=== PATIENT | male | born 1995 | race Caucasian/White ===

== ENCOUNTER 2020-08-26 05:57 | Emergency (ER) | payer OTHER ==
[2020-08-26 06:53] LABS: BASOPHIL 0.6 % (0-2); EOSINOPHIL 10.6 % (0-5); HCT 45.7 % (42.0-52.0); HGB 16.4 g/dl (13.2-18.0); LYMPHOCYTE 24.7 % (15-48); MCH 31.1 pg (25.0-31.0); MCHC 35.9 g/dL (32.0-36.0); MCV 86.7 fL (78.0-100.0); MONOCYTE 5.1 % (0-12); MPV 11.5 fL (6.0-9.5); NEUTROPHIL 58.8 % (41-80); NRBC 0; PLT 278 K/uL (150-400); RBC 5.27 M/uL (4.70-6.00); RDW 12.4 % (11.5-14.0); WBC 9.7 K/uL (4.0-10.5)
[2020-08-26 06:58] LABS: INR 1.12 (0.9-1.2); PROTHROMBIN TIME 13.7 SECONDS (11.4-13.6); PTT 31.3 SECONDS (22.2-34.7)
[2020-08-26 06:59] LABS: D-DIMER < 0.27 ug/mLFEU (0.00-0.41)
[2020-08-26 07:09] LABS: ALBUMIN 4.7 g/dL (3.4-5.0); BILIRUBIN - TOTAL 0.5 mg/dL (0.2-1.0); GLOBULIN (CALCULATION) 3.3 g/dL; POTASSIUM 4.2 mmol/L (3.5-5.1)
[2020-08-26 07:12] LABS: PRO-BNP 27 pg/mL (<125)
[2020-08-26 07:16] LABS: LACTIC ACID 1.1 mmol/L (0.4-1.9)
[2020-08-26 07:40] LABS: CORONAVIRUS 2019 SARS-COV-2 NEGATIVE (NEGATIVE); INFLUENZA A NAA NEGATIVE (NEGATIVE)
[2020-08-26] MEDS ORDERED: VENTOLIN HFA IN18 GM INH (08:08)
[2020-08-26] MEDS ORDERED: PREDNISONE 20MG20 MG PO (08:08)
== END 2020-08-26 08:30 | disposition home or self-care (01) ==
LOC: FER 05:57
PROVIDERS: Emergency Medicine
DX: J98.01 Acute bronchospasm (principal); I49.9 Cardiac arrhythmia, unspecified; Z88.0 Allergy status to penicillin; Z88.1 Allergy status to other antibiotic agents; Z87.891 Personal history of nicotine dependence; Z20.822 Contact with and (suspected) exposure to COVID-19
CPT/HCPCS: 36415; 71046; 80053; 83605; 83735; 83880; 84145; 84484; 85025; 85379; 85610; 85730; 93005; 94640; 94664; J7512; U0002